=== PATIENT | male | born 1985 | race Hispanic/Latino ===

== ENCOUNTER 2018-02-24 09:10 | Day surgery (SDC) | payer BC ==
[2018-02-24 09:52] VITALS: TEMP 97.8
[2018-02-24 09:53] VITALS: BMI 29.5
[2018-02-24] MEDS ORDERED: Midazolam 2 MG/2 ML VIAL ONE (12:40)
[2018-02-24] MEDS ORDERED: Propofol 10 mg/ml Inj (20 ML) ONE (12:41)
[2018-02-24 13:49] VITALS: BP 105/66; PULSE 57; RESP 16; O2SAT 97
== END 2018-02-24 13:48 | disposition home or self-care (01) ==
LOC: C.ENDO 09:10
PROVIDERS: ATTEND Internal Medicine Gastroenterology
DX: R13.10 Dysphagia, unspecified (principal); K20.9 Esophagitis, unspecified
CPT/HCPCS: 43235; 88305; J2250; J2704